=== PATIENT | male | born 1955 | race Caucasian/White ===

== ENCOUNTER 2021-08-30 12:48 | Outpatient (RCR) | payer MEDICARE, SELFPAY ==
--- NOTE | 2021-08-30 13:53 | PTOPEVAL ---
Thank you for referring Gabriele Tamayo to [facility].? The patient is scheduled to be seen for therapy? ____x/week for ___ weeks. Please review, sign, date and return this plan of care VIK. I agree with and certify that the following plan of care is medically necessary. Referring Physician Date Admitting Provider: Attending Provider: Ale Salinas, WHITING MACHINE OPERATOR Referring Provider: *PT Outpatient Evaluation Start: 08/30/21 13:01 Freq: Status: Active Protocol: Document 08/30/21 13:00 [facility] (Rec: 08/30/21 13:53 [facility] [id number]) Therapy Assessment Status Assessment Status Assessment Status Evaluation Evaluation Information Problem Diagnosis s/p R TKA Onset 08/27/21 Additional Evaluation Detail LEFS = 100% functional deficits Subjective Information patient reports he underwent R Query Text:As Reported By Patient/ TKA for pain and arthritis on Family 08/27/21. he reports he had been dealing with increasing pain in the R knee for about 2 years. he reports he is having a bit of trouble getting aroun, sitting, and standing after surgery. he reports he is not sure what to do, how much weight to put on the leg, and how long he will be using the walker. Prior Level of Function Comments Additional Prior Level of Function prior to surgery, patient Comments reports he had pain in the R knee, but reports he was getting around without any AD. Pain Assessment Timing of Pain Assessment Timing of Pain Assessment Assessment Pain Scale Pain Scale Used Numeric (1 - 10) Self Report Pain Assessment Right Knee(s) Reported Pain Level 2 Greatest Pain Intensity 10 Pain Score Pain Score 2: Self Report Interventions Used Interventions Used By Clinicians Elevation,Ice,Medication,Rest Lower Extremity Range of Motion General Lower Extremity Range of Motion Gross Lower Extremity Range of Motion 0-121 degrees arom L knee Comments mobility -9 degrees arom R knee extension 63 degrees arom R knee flexion Lower Extremity Muscle Strength Testing General Lower Extremity Strength Gross Lower Extremity Strength 4/5 L hip flex 3-/5 R hip flex 5/5 L knee strength 3-/5 R knee ext
--- NOTE | 2021-09-10 15:24 | PTOPEVAL ---
Thank you for referring Gabriele Tamayo to [facility]. Please review, sign, date and return this plan of care VIK. I agree with and certify that the following plan of care is medically necessary. Referring Physician Date Admitting Provider: Attending Provider: lAe Salinas, CONDITIONING MACHINE OPERATOR Referring Provider: *PT Outpatient Evaluation Start: 08/30/21 13:01 Freq: Status: Active Protocol: Document 09/10/21 13:58 [facility] (Rec: 09/10/21 15:22 [facility] [id number]) Therapy Assessment Status Assessment Status Assessment Status Progress Evaluation Information Problem Diagnosis s/p right TKA Subjective Information Pt. reports that he is doing Query Text:As Reported By Patient/ well. He states that he still Family has stiffness with bending his knee. He reports that pain levels will fluctuate based on activity level. Pain Assessment Timing of Pain Assessment Timing of Pain Assessment Pre-Treatment Pain Scale Pain Scale Used Numeric (1 - 10) Self Report Pain Assessment Right Knee(s) Reported Pain Level 2 Pain Score Pain Score 2: Self Report Interventions Used Interventions Used By Clinicians Activity or ADL's,Compression Pump,Exercise Lower Extremity Range of Motion General Lower Extremity Range of Motion Gross Lower Extremity Range of Motion Pt. achieves 2-97 degrees Comments AAROM at the right knee Gait Assessment Gait Assessment Additional Ambulation Comments Pt. is progressed to cane ambulation with slightly decreased stance time on the right compared to the left. He does achieve ability for swing phase extremity to pass the stance phase extremity. General Exercise General Exercises Exercise Description Ther Ex: Query Text:Record Sets, Reps, -AAROM knee flexion x 10 Resistance, and Position minutes with 30 second holds at end range -heel slides x 10 reps -shallow squats x 10 -standing hip extension x 20 bilateral -standing hip abduction x 20 bilateral -heel prop to promote knee extension x 8 minutes Gait Training -Educated pt. in use of a standard cane and normal
--- NOTE | 2021-09-26 15:25 | PTOPEVAL ---
Thank you for referring Gabriele Tamayo to [facility][Note 3[facility]? The patient is scheduled to be seen for therapy? ____x/week for ___ weeks. Please review, sign, date and return this plan of care VIK. I agree with and certify that the following plan of care is medically necessary. Referring Physician Date Admitting Provider: Attending Provider: Ale Salinas, HOURLY CAREGIVER Referring Provider: *PT Outpatient Evaluation Start: 08/30/21 13:01 Freq: Status: Active Protocol: Document 09/26/21 14:13 [facility] (Rec: 09/26/21 15:24 [facility] [id number]) Therapy Assessment Status Assessment Status Assessment Status Re-evaluation Evaluation Information Problem Diagnosis s/p right TKA Onset 08/27/21 Subjective Information patient reports he feels Good Query Text:As Reported By Patient/ this date. he reports he Family continues to feel improved each week. he reports he did push himself hard last night with his knee exercises. he reports follow up with MD on 10/09/21. Pain Assessment Timing of Pain Assessment Timing of Pain Assessment Assessment Pain Scale Pain Scale Used Numeric (1 - 10) Self Report Pain Assessment Right Knee(s) Reported Pain Level 2 Pain Score Pain Score 2: Self Report Interventions Used Interventions Used By Clinicians Activity or ADL's,Compression Pump,Exercise Lower Extremity Range of Motion General Lower Extremity Range of Motion Gross Lower Extremity Range of Motion -8 degrees arom R knee Comments extension -2 degrees prom R knee extension 101 degrees arom R knee flexion 105 degrees prom R knee flexion Lower Extremity Muscle Strength Testing General Lower Extremity Strength Gross Lower Extremity Strength 4+/5 R hip flex 5/5 R knee flex 4+/5 R knee ext Muscle Length Testing Muscle Length Testing Left Hamstring Length 40 Query Text:(90 - 90 Position) Right Hamstring Length 45 Query Text:(90 - 90 Position) Gait Assessment Gait Assessment Additional Ambulation Comments patient ambulates into clinic with single point cane. he ambulates at home without an AD. he ambulates with antalgia favoring the R LE still noted by decreased heel conctact,
--- NOTE | 2021-11-06 17:21 | PTOPEVAL ---
Thank you for referring Gabriele Tamayo to [facility].? The patient is scheduled to be seen for therapy? ____x/week for ___ weeks. Please review, sign, date and return this plan of care VIK. I agree with and certify that the following plan of care is medically necessary. Referring Physician Date Admitting Provider: Attending Provider: Ale Salinas, SWIMMING POOL SERVICE TECHNICIAN Referring Provider: *PT Outpatient Evaluation Start: 08/30/21 13:01 Freq: Status: Active Protocol: Document 10/26/21 13:00 [facility] (Rec: 11/06/21 17:19 [facility] [id number]) Therapy Assessment Status Assessment Status Assessment Status Re-evaluation Evaluation Information Problem Diagnosis s/p right TKA Onset 08/27/21 Subjective Information patient reports he feels good Query Text:As Reported By Patient/ he reports he is much better Family with his walking and exercises. however, he continues to report increased pain when up and walking longer distances. Pain Assessment Timing of Pain Assessment Timing of Pain Assessment Assessment Pain Scale Pain Scale Used Numeric (1 - 10) Self Report Pain Assessment Right Knee(s) Reported Pain Level 3 Pain Score Pain Score 3: Self Report Interventions Used Interventions Used By Clinicians Activity or ADL's,Education, Exercise Lower Extremity Range of Motion General Lower Extremity Range of Motion Gross Lower Extremity Range of Motion 0-110 degrees arom R knee Comments mobility Lower Extremity Muscle Strength Testing General Lower Extremity Strength Gross Lower Extremity Strength 4+/5 R hip flex 5/5 R knee strength Gait Assessment Gait Pattern Assessment Other Gait Observations patient ambulates with continued mild decreased stance time/weight bearing on the R LE. he ambulates with reciprocal gait mechanics up and down steps with 1 hand rail hold. he ambulates with needing increased effort to push up steps on the R. patient displays toeing out and hip ER of the R LE down step. he ambualtes with no AD other than hand rial up steps. General Exercise General Exercises Exercise Description -treatment performed by Query Text:Record Sets, Reps, Lelo Panda, LEAD CLINICAL RESEARCH COORDINATOR Resistance, and Position PT Clinical Summary Clinic
== END 2021-11-07 14:25 | disposition home or self-care (01) ==
LOC: CHSPT 12:48
PROVIDERS: Visit Provider Nurse Practitioner Family
DX: Z96.651 Presence of right artificial knee joint (principal); M17.11 Unilateral primary osteoarthritis, right knee
CPT/HCPCS: 97016; 97110; 97112; 97116; 97140; 97161; 97530